=== PATIENT | male | born 1985 | race Caucasian/White ===

== ENCOUNTER 2017-08-25 19:19 | Emergency (ER) | payer MEDICAID | END 2017-08-25 20:22 | disposition home or self-care (01) | LOC: E/R 19:19 | DX: S41.151A Open bite of right upper arm, initial encounter (principal); W55.01XA Bitten by cat, initial encounter; Y92.9 Unspecified place or not applicable | CPT/HCPCS: 99283; Z7502 ==

== ENCOUNTER 2017-09-06 18:47 | Emergency (ER) | payer OTHER, MEDICAID ==
[2017-09-06] MEDS: IBUPROFEN 200 MG TAB PO (22:20)
== END 2017-09-07 | disposition home or self-care (01) ==
LOC: FTE 09-07
DX: M79.641 Pain in right hand (principal)
CPT/HCPCS: 29125; 73130-RT; 99283-25